=== PATIENT | male | born 1990 | race Caucasian/White ===

== ENCOUNTER 2023-12-05 11:32 | Emergency (ER) | payer MEDICAID, OTHER ==
[~2023-12-05] VITALS: Ht 172.7 cm; Wt 95.0 kg
[~2023-12-05 11:32] MED LIST: CRAN250C PO; DOCU50LI25 PO; FAMO20TA8 PO; FERR325T6 PO; GEMF600T90 PO; LEVE750T4 PO; MULT-1021 PO; OMEG100016 PO; QUET100T PO
[2023-12-05 11:38] VITALS: O2SAT 98
[2023-12-05 13:42] VITALS: TEMP 36.11400
[2023-12-05] MEDS: SODIUM CHLORIDE 0.9% 1000ML BAG (SEPSIS BOLUS) IV ONE (13:53)
[2023-12-05] MEDS: LEVOFLOXACIN 500MG PREMIX 100 ML IV ONE (14:00)
[2023-12-05] MEDS: PANTOPRAZOLE SODIUM 40 MG/VIAL IV ONE (14:00)
[2023-12-05 15:45] VITALS: BP 111/76; PULSE 86; RESP 16; O2SAT 99
[2023-12-05 16:03] LABS: BASOPHILS % 1.1 % (0.0-2.0); EOSINOPHILS % 8.3 % (0.0-5.0); HEMATOCRIT. 48.4 % (42.0-52.0); HEMOGLOBIN. 15.8 g/dL (14.0-18.0); LYMPHOCYTES % 28.7 % (20.0-50.0); MEAN CORPUSCULAR HEMOGLOBIN 30.4 pg (28.0-32.0); MEAN CORPUSCULAR HGB CONC 32.6 g/dL (31.0-37.0); MEAN CORPUSCULAR VOLUME 93.3 fL (80.0-94.0); MEAN PLATELET VOLUME 8.1 fl (7.4-10.4); MONOCYTES % 11.3 % (2.0-8.0); NEUTROPHILS % 50.6 % (40.0-76.0); PLATELET 267 x1000/uL (130-400); RED BLOOD CELL COUNT 5.19 mill/uL (4.7-6.1); RED CELL DISTRIBUTION WIDTH 14.3 % (11.6-14.6); WHITE BLOOD COUNT 5.9 x1000/uL (4.5-11.0)
[2023-12-05 16:08] LABS: CARBON DIOXIDE 25 mEq/L (21-32); CHLORIDE 107 mEq/L (98-107); SODIUM 139 mEq/L (136-145)
[2023-12-05 16:09] LABS: CALCIUM 9.6 mg/dL (8.7-10.4); INR 0.9; PROTHROMBIN TIME 10.1 sec (9.6-11.0)
[2023-12-05 16:13] LABS: CREATININE 0.9 mg/dL (0.6-1.3)
[2023-12-05 16:14] LABS: GLUCOSE 104 mg/dL (70-105); UREA NITROGEN BLOOD 8 mg/dL (9-23)
[2023-12-05 16:15] LABS: ALANINE AMINOTRANSFERASE 80 IU/L (10-49); LACTIC ACID 2.4 mmol/L (0.4-2.0)
[2023-12-05 16:16] LABS: ALBUMIN 4.9 g/dL (3.2-4.8); ASPARTATE AMINOTRANSFERASE 53 IU/L (<34); BILIRUBIN DIRECT 0.1 mg/dL (<=3.0); BILIRUBIN TOTAL 0.4 mg/dL (0.1-1.0); PROTEIN TOTAL 7.9 g/dL (6.0-8.3)
== END 2023-12-05 17:02 | disposition short-term general hospital (02) ==
LOC: ER 11:53 → EDBEDREQ 15:02 → EDBEDREQTM 15:02 → ER 17:02
DX: K92.2 Gastrointestinal hemorrhage, unspecified (principal); K21.9 Gastro-esophageal reflux disease without esophagitis; F20.9 Schizophrenia, unspecified; Z98.890 Other specified postprocedural states; Z88.8 Allergy status to other drugs, medicaments and biological substances; Z79.899 Other long term (current) drug therapy
CPT/HCPCS: 80076; 80048; 83605; 83690; 85025; 85610; 86850; 86900; 86901; 87040; 36415; 84145; 71045; 96365; 96375; 99291; J1956; J2470; J7030; Z7610

== ENCOUNTER 2024-02-25 13:50 | Inpatient (IN) | payer OTHER ==
[~2024-02-25] VITALS: Ht 180.3 cm; Wt 122.9 kg
[2024-02-25] VITALS (19 sets, daily range): BP systolic 103–129; BP diastolic 57–100; PULSE 99–145; RESP 18–24; TEMP 36.9184–37.11408; O2SAT 93–100
[2024-02-25] MEDS: FOLIC ACID 1 MG, THIAMINE HCL 100 MG, MVI, ADULT NO.1 10 ML in DEXTROSE 5% WATER 1,000 ML IV ONE (14:30)
[2024-02-25] MEDS ORDERED: MIDAZOLAM 100MG/100ML PMX 100 ML IV STA (14:40)
[2024-02-25] MEDS: LORAZEPAM 2MG/ML INJ IV ONE ×3 (15:08→20:33)
[2024-02-25] MEDS: LEVETIRACETAM 500MG PREMIX 100 ML IV ONE (15:16)
[2024-02-25] MEDS: LORAZEPAM 2MG/ML INJ IM ONE (15:20)
[2024-02-25 15:49] LABS: BASOPHILS % 0.7 % (0.0-2.0); EOSINOPHILS % 0.1 % (0.0-5.0); HEMATOCRIT. 44.7 % (42.0-52.0); LYMPHOCYTES % 14.5 % (20.0-50.0); MEAN CORPUSCULAR HEMOGLOBIN 30.3 pg (28.0-32.0); MEAN CORPUSCULAR HGB CONC 33.6 g/dL (31.0-37.0); MEAN CORPUSCULAR VOLUME 90.1 fL (80.0-94.0); MEAN PLATELET VOLUME 7.2 fl (7.4-10.4); MONOCYTES % 8.2 % (2.0-8.0); NEUTROPHILS % 76.5 % (40.0-76.0); PLATELET 405 x1000/uL (130-400); RED BLOOD CELL COUNT 4.96 mill/uL (4.7-6.1); RED CELL DISTRIBUTION WIDTH 13.7 % (11.6-14.6); WHITE BLOOD COUNT 12.3 x1000/uL (4.5-11.0)
[2024-02-25 15:58] LABS: CARBON DIOXIDE 19 mEq/L (21-32); CHLORIDE 96 mEq/L (98-107); PARTIAL THROMBOPLASTIN TIME 23.1 sec (23.4-31.0); PROTHROMBIN TIME 11.4 sec (9.6-11.0); SODIUM 136 mEq/L (136-145)
[2024-02-25 15:59] LABS: CALCIUM 8.6 mg/dL (8.7-10.4)
[2024-02-25 16:04] LABS: ETHANOL BLOOD < 10 mg/dL (<10); TROPONIN I HIGH SENSITIVITY 9 ng/L (3.0-53); UREA NITROGEN BLOOD 12 mg/dL (9-23)
[2024-02-25 16:05] LABS: ALANINE AMINOTRANSFERASE 77 IU/L (10-49); ASPARTATE AMINOTRANSFERASE 116 IU/L (<34); PROTEIN TOTAL 7.4 g/dL (6.0-8.3)
[2024-02-25 16:06] LABS: BILIRUBIN DIRECT 0.2 mg/dL (<=3.0); BILIRUBIN TOTAL 0.7 mg/dL (0.1-1.0)
[2024-02-25] MEDS: MIDAZOLAM 100MG/100ML PMX 100 ML IV PRN (16:17)
[2024-02-25 16:26] LABS: CREATININE 1.6 mg/dL (0.6-1.3); GLUCOSE 255 mg/dL (70-105)
[2024-02-25] MEDS ORDERED: KCL 20MEQ/100ML PREMIX 100 ML IV ONE (17:00)
[2024-02-25] MEDS: SODIUM CHLORIDE 0.9% (SEPSIS BOLUS) IV ONE (17:16)
[2024-02-25 17:20] LABS: BG BASE EXCESS -4.4 mmol/L (-2.0-3.0); BG CARBOXYHEMOGLOBIN 0.3 % (0.5-1.5); BG DEOXYHEMOGLOBIN 0.6 % (0.0-5.0); BG FRACTION INSPIRED OXYGEN 100; BG HCO3 ACT 23.2 mmol/L (21.0-28.0); BG METHEMOGLOBIN 0.1 % (0.5-1.5); BG OXYGEN SATURATION 99.4 % (94.0-98.0); BG PCO2 52.4 mmHg (35.0-48.0); BG PH 7.264 (7.350-7.450); BG PO2 223.9 mmHg (83.0-108.0); BG SAMPLE SITE RIGHT RADIAL; BG TOTAL HEMOGLOBIN 15.7 g/dL (13.5-17.5); BG VENT MODE VENT - AC
[2024-02-25] MEDS: VANCOMYCIN 1G PREMIX 200 ML IV ONE (17:43)
[2024-02-25] MEDS: LEVOFLOXACIN 750MG PREMIX 150 ML IV ONE (17:43)
[2024-02-25 17:54] LABS: TROPONIN I HIGH SENSITIVITY 54 ng/L (3.0-53)
[2024-02-25 17:55] LABS: LACTIC ACID 3.7 mmol/L (0.4-2.0)
[2024-02-25] MEDS: VANCOMYCIN 750MG PREMIX 150 ML IV NR (18:53)
[2024-02-25] MEDS: KCL 10MEQ/50ML PREMIX 50 ML IV NR (18:54)
[2024-02-25] MEDS ORDERED: FENTANYL 2500MCG/250ML PMX 250 ML IV ONE (20:15)
[2024-02-25 20:29] LABS: CHLORIDE 102 mEq/L (98-107); POTASSIUM 4.6 mEq/L (3.5-5.1); SODIUM 133 mEq/L (136-145)
[2024-02-25 20:30] LABS: CARBON DIOXIDE 22 mEq/L (21-32)
[2024-02-25 20:31] LABS: CALCIUM 7.5 mg/dL (8.7-10.4)
[2024-02-25 20:35] LABS: CREATININE 1.1 mg/dL (0.6-1.3); GLUCOSE 129 mg/dL (70-105)
[2024-02-25 20:36] LABS: UREA NITROGEN BLOOD 8 mg/dL (9-23)
[2024-02-25] MEDS ORDERED: PIPERACILLIN/TAZO 3.375G/50ML 50 ML IV SCH (22:00)
[2024-02-25] MEDS: LEVETIRACETAM 500MG PREMIX 100 ML IV SCH (22:08)
[2024-02-25 22:20] LABS: BG BASE EXCESS -0.5 mmol/L (-2.0-3.0); BG CARBOXYHEMOGLOBIN 0.5 % (0.5-1.5); BG DEOXYHEMOGLOBIN 0.4 % (0.0-5.0); BG FRACTION INSPIRED OXYGEN 100; BG HCO3 ACT 23.9 mmol/L (21.0-28.0); BG METHEMOGLOBIN 0.2 % (0.5-1.5); BG OXYGEN SATURATION 99.6 % (94.0-98.0); BG OXYHEMOGLOBIN 98.9 % (94.0-98.0); BG PCO2 38.6 mmHg (35.0-48.0); BG PO2 319.4 mmHg (83.0-108.0); BG SAMPLE SITE LEFT RADIAL; BG TOTAL HEMOGLOBIN 13.4 g/dL (13.5-17.5); BG VENT MODE VENT - AC
[2024-02-26] VITALS (79 sets, daily range): BP systolic 86–145; BP diastolic 51–96; PULSE 74–127; RESP 15–26; TEMP 36.3918–37.28076; O2SAT 93–100
[2024-02-26] MEDS ORDERED: FENTANYL 2500MCG/250ML PMX 250 ML IV PRN ×2 (04:00→04:15)
[2024-02-26] MEDS: MIDAZOLAM 100MG/100ML PMX 100 ML IV PRN (04:32)
[2024-02-26] MEDS: FENTANYL CITRATE 2,500 MCG in SODIUM CHLORIDE 0.9% 200 ML IV PRN (04:33)
[2024-02-26 05:26] LABS: HEMATOCRIT 39.8 % (42.0-52.0); HEMOGLOBIN 13.8 g/dL (14.0-18.0); MEAN CORPUSCULAR HEMOGLOBIN 30.8 pg (28.0-32.0); MEAN CORPUSCULAR HGB CONC 34.7 g/dL (31.0-37.0); MEAN CORPUSCULAR VOLUME 88.8 fL (80.0-94.0); PLATELET 275 x1000/uL (130-400); RED BLOOD CELL COUNT 4.48 mill/uL (4.7-6.1); RED CELL DISTRIBUTION WIDTH 13.5 % (11.6-14.6); WHITE BLOOD COUNT 7.7 x1000/uL (4.5-11.0)
[2024-02-26 05:39] LABS: CARBON DIOXIDE 27 mEq/L (21-32); CHLORIDE 105 mEq/L (98-107); POTASSIUM 3.3 mEq/L (3.5-5.1); SODIUM 138 mEq/L (136-145)
[2024-02-26 05:44] LABS: CREATININE 0.9 mg/dL (0.6-1.3)
[2024-02-26 05:45] LABS: GLUCOSE 120 mg/dL (70-105)
[2024-02-26 06:03] LABS: UREA NITROGEN BLOOD < 5 mg/dL (9-23)
[2024-02-26] MEDS: VANCOMYCIN 750MG/150ML (BAXTER) IV SCH (06:40)
[2024-02-26] MEDS: PROPOFOL 10MG/ML 100ML 100 ML IV PRN (08:09)
[2024-02-26] MEDS: VANCOMYCIN 500MG PREMIX 100 ML IV SCH (08:41)
[2024-02-26] MEDS: METRONIDAZOLE 500 MG PREMIX 100 ML IV SCH (09:32)
[2024-02-26] MEDS ORDERED: LEVOFLOXACIN 500MG PREMIX 100 ML IV SCH (10:00)
[2024-02-26] MEDS: KCL 20MEQ/100ML PREMIX 100 ML IV SCH (11:38)
[2024-02-26] MEDS: DEXMEDETOMIDINE 400 MCG/100 ML 100 ML IV PRN (14:14)
[2024-02-26] MEDS: FOLIC ACID 1 MG, THIAMINE HCL 100 MG, MVI, ADULT NO.1 10 ML in DEXTROSE 5% WATER 1,000 ML IV SCH (14:39)
[2024-02-26] MEDS: LEVOFLOXACIN 750MG PREMIX 150 ML IV SCH (16:31)
[2024-02-26 17:21] LABS: BG BASE EXCESS 1.9 mmol/L (-2.0-3.0); BG CARBOXYHEMOGLOBIN 0.7 % (0.5-1.5); BG DEOXYHEMOGLOBIN 5.7 % (0.0-5.0); BG FRACTION INSPIRED OXYGEN 40; BG HCO3 ACT 26.3 mmol/L (21.0-28.0); BG METHEMOGLOBIN 0.3 % (0.5-1.5); BG OXYGEN SATURATION 94.2 % (94.0-98.0); BG OXYHEMOGLOBIN 93.3 % (94.0-98.0); BG PCO2 40.7 mmHg (35.0-48.0); BG PH 7.429 (7.350-7.450); BG PO2 67.3 mmHg (83.0-108.0); BG SAMPLE SITE LEFT RADIAL; BG TOTAL HEMOGLOBIN 13.4 g/dL (13.5-17.5); BG VENT MODE VENT - CPAP
[2024-02-26] MEDS ORDERED: DIPHENHYDRAMINE 50MG/ML VIAL IV PRN (19:45)
[2024-02-26] MEDS: VANCOMYCIN 1.25GM PMX (XELLIA) 250 ML IV SCH (20:15)
[2024-02-27] VITALS (26 sets, daily range): BP systolic 91–137; BP diastolic 52–121; PULSE 83–120; RESP 19–41; TEMP 36.33624–38.3364; O2SAT 89–100
[2024-02-27 01:22] LABS: CLARITY URINE CLEAR (CLEAR); COLOR URINE YELLOW (YELLOW); GLUCOSE URINE NEGATIVE (NEGATIVE); KETONES URINE NEGATIVE (NEGATIVE); LEUKOCYTE ESTERASE URINE NEGATIVE (NEGATIVE); NITRITE URINE NEGATIVE (NEGATIVE); OCCULT BLOOD URINE NEGATIVE (NEGATIVE); PH URINE 6.5 (4.5-8.0); PROTEIN URINE NEGATIVE (NEGATIVE); SPECIFIC GRAVITY URINE 1.009 (1.005-1.030); UROBILINOGEN URINE 0.2 E.U./dL (0.2-1.0)
[2024-02-27 01:32] LABS: *AMPHETAMINES SCREEN URINE NEGATIVE (NEGATIVE); *BARBITURATES SCREEN URINE NEGATIVE (NEGATIVE); *BENZODIAZEPINES SCREEN URINE PRESUMPTIVE POSITIVE (NEGATIVE); *COCAINE SCREEN URINE NEGATIVE (NEGATIVE); ECSTASY MDMA SCREEN URINE NEGATIVE (NEGATIVE); METHADONE URINE SCREEN NEGATIVE (NEGATIVE); OPIATES URINE SCREEN PRESUMPTIVE POSITIVE (NEGATIVE); PHENCYCLIDINE URINE SCREEN NEGATIVE (NEGATIVE)
[2024-02-27 03:52] LABS: CANNABINOID URINE SCREEN NEGATIVE (NEGATIVE)
[2024-02-27 06:15] LABS: BASOPHILS % 0.9 % (0.0-2.0); EOSINOPHILS % 2.4 % (0.0-5.0); HEMATOCRIT. 36.2 % (42.0-52.0); HEMOGLOBIN. 12.6 g/dL (14.0-18.0); LYMPHOCYTES % 22.1 % (20.0-50.0); MEAN CORPUSCULAR HEMOGLOBIN 31.2 pg (28.0-32.0); MEAN CORPUSCULAR HGB CONC 34.7 g/dL (31.0-37.0); MEAN CORPUSCULAR VOLUME 89.9 fL (80.0-94.0); MEAN PLATELET VOLUME 7.4 fl (7.4-10.4); MONOCYTES % 9.3 % (2.0-8.0); NEUTROPHILS % 65.3 % (40.0-76.0); PLATELET 229 x1000/uL (130-400); RED BLOOD CELL COUNT 4.02 mill/uL (4.7-6.1); RED CELL DISTRIBUTION WIDTH 13.4 % (11.6-14.6); WHITE BLOOD COUNT 6.2 x1000/uL (4.5-11.0)
[2024-02-27 06:20] LABS: CHLORIDE 105 mEq/L (98-107); POTASSIUM 3.3 mEq/L (3.5-5.1); SODIUM 140 mEq/L (136-145)
[2024-02-27 06:21] LABS: CARBON DIOXIDE 28 mEq/L (21-32)
[2024-02-27 06:22] LABS: CALCIUM 8.1 mg/dL (8.7-10.4)
[2024-02-27 06:26] LABS: CREATININE 0.9 mg/dL (0.6-1.3); GLUCOSE 105 mg/dL (70-105)
[2024-02-27 06:38] LABS: UREA NITROGEN BLOOD < 5 mg/dL (9-23)
[2024-02-27 09:30] LABS: BG BASE EXCESS 1.2 mmol/L (-2.0-3.0); BG FRACTION INSPIRED OXYGEN 40; BG HCO3 ACT 25.3 mmol/L (21.0-28.0); BG METHEMOGLOBIN 0.1 % (0.5-1.5); BG OXYHEMOGLOBIN 95.9 % (94.0-98.0); BG PCO2 38.7 mmHg (35.0-48.0); BG PH 7.434 (7.350-7.450); BG PO2 81.3 mmHg (83.0-108.0); BG SAMPLE SITE LEFT RADIAL; BG VENT MODE NASAL CANNULA
[2024-02-27] MEDS: PANTOPRAZOLE SODIUM 40 MG/VIAL IV SCH (09:30)
[2024-02-27] MEDS: CHLORDIAZEPOXIDE 25MG CAPSULE PO SCH (09:30)
[2024-02-27] MEDS: POTASSIUM CHLORIDE 20MEQ TABLET SR PO NR (10:04)
[2024-02-27] MEDS: VANCOMYCIN 1.25GM PMX (XELLIA) 250 ML IV SCH (17:43)
[2024-02-28] VITALS (12 sets, daily range): BP systolic 90–142; BP diastolic 56–104; PULSE 99–122; RESP 16–40; TEMP 36.28068–38.0586; O2SAT 87–97
[2024-02-28] MEDS: ACETAMINOPHEN 325MG TABLET PO PRN (00:59)
[2024-02-28] MEDS: HYDROCODONE/ACETAMINOPHEN 10/325MG TABLET PO PRN (06:56)
[2024-02-29] VITALS (12 sets, daily range): BP systolic 114–141; BP diastolic 61–101; PULSE 85–115; RESP 15–32; TEMP 36.3918–37.00296; O2SAT 85–99
[2024-02-29 07:02] LABS: CARBON DIOXIDE 26 mEq/L (21-32); CHLORIDE 107 mEq/L (98-107); SODIUM 141 mEq/L (136-145)
[2024-02-29 07:03] LABS: CALCIUM 8.7 mg/dL (8.7-10.4)
[2024-02-29 07:06] LABS: CREATININE 0.8 mg/dL (0.6-1.3)
[2024-02-29 07:08] LABS: GLUCOSE 111 mg/dL (70-105); UREA NITROGEN BLOOD 7 mg/dL (9-23)
[2024-02-29 07:10] LABS: PHOSPHORUS 3.2 mg/dL (2.5-4.9)
[2024-02-29 07:12] LABS: BASOPHILS % 0.8 % (0.0-2.0); EOSINOPHILS % 7.2 % (0.0-5.0); HEMATOCRIT. 39.1 % (42.0-52.0); HEMOGLOBIN. 13.4 g/dL (14.0-18.0); LYMPHOCYTES % 31.3 % (20.0-50.0); MEAN CORPUSCULAR HEMOGLOBIN 31.3 pg (28.0-32.0); MEAN CORPUSCULAR HGB CONC 34.2 g/dL (31.0-37.0); MEAN CORPUSCULAR VOLUME 91.4 fL (80.0-94.0); MEAN PLATELET VOLUME 7.4 fl (7.4-10.4); MONOCYTES % 12.5 % (2.0-8.0); NEUTROPHILS % 48.2 % (40.0-76.0); PLATELET 253 x1000/uL (130-400); RED BLOOD CELL COUNT 4.27 mill/uL (4.7-6.1); RED CELL DISTRIBUTION WIDTH 13.7 % (11.6-14.6); WHITE BLOOD COUNT 5.6 x1000/uL (4.5-11.0)
[2024-02-29] MEDS: FAMOTIDINE 20MG/2ML VIAL IV SCH (08:12)
[2024-02-29] MEDS: LACTOBACILLUS GG CAPSULE PO SCH (17:18)
[2024-03-01] VITALS: BP 116/75; PULSE 105; RESP 22; TEMP 37.00296; O2SAT 97
[2024-03-01] MEDS: ZOLPIDEM TARTRATE 5MG TABLET PO NR (00:35)
[2024-03-01 04:00] VITALS: BP 117/74; PULSE 99; RESP 18; TEMP 36.16956; O2SAT 91
[2024-03-01 08:00] VITALS: BP 85/64; PULSE 99; RESP 16; TEMP 37.503; O2SAT 95
[2024-03-01] MEDS: LEVETIRACETAM 500MG TABLET PO SCH (10:03)
[2024-03-01 12:00] VITALS: BP 131/68; PULSE 103; RESP 21; TEMP 36.44736; O2SAT 95
[2024-03-01 16:00] VITALS: BP 113/67; PULSE 100; RESP 17; TEMP 36.55848; O2SAT 84
[2024-03-01 20:00] VITALS: BP 124/79; PULSE 97; RESP 26; TEMP 37.11408; O2SAT 95
[2024-03-01] MEDS: ZOLPIDEM TARTRATE 5MG TABLET PO PRN (21:41)
[2024-03-02] VITALS: BP 114/72; PULSE 95; RESP 22; TEMP 36.44736; O2SAT 96
[2024-03-02 04:00] VITALS: BP 120/86; PULSE 95; RESP 28; TEMP 36.28068; O2SAT 94
[2024-03-02 08:00] VITALS: BP 130/87; PULSE 107; RESP 32; TEMP 36.78072; O2SAT 97
[2024-03-02 12:00] VITALS: BP 125/77; PULSE 108; RESP 33; TEMP 36.78072
[2024-03-02 16:00] VITALS: BP 133/91; PULSE 100; RESP 15; TEMP 36.9474
[2024-03-02] MEDS ORDERED: NALOXONE HCL 0.4MG/ML VIAL IV PRN (16:00)
[2024-03-02 20:00] VITALS: BP 116/90; PULSE 99; RESP 19; TEMP 36.3918; O2SAT 98
[2024-03-03] VITALS: BP 122/97; PULSE 97; RESP 17; TEMP 36.22512; O2SAT 98
[2024-03-03 04:00] VITALS: BP 103/68; PULSE 94; RESP 18; TEMP 36.44736; O2SAT 98
[2024-03-03 08:00] VITALS: PULSE 108; RESP 23; TEMP 37.2252
[2024-03-03 12:00] VITALS: BP 121/62; PULSE 98; TEMP 36.6696
[2024-03-03 16:00] VITALS: BP 119/78; PULSE 103; TEMP 36.9474
[2024-03-03 20:00] VITALS: PULSE 95; RESP 18; TEMP 37.28076
[2024-03-04] VITALS: BP 119/69; PULSE 98; RESP 18; TEMP 36.6696
[2024-03-04 04:00] VITALS: BP 120/62; PULSE 98; RESP 18; TEMP 36.78072
[2024-03-04] MEDS: HYDROCODONE/ACETAMINOPHEN 10/325MG TABLET PO PRN (06:54)
[2024-03-04 08:55] VITALS: BP 122/90; PULSE 98; RESP 18; TEMP 36.61404
[2024-03-04] MEDS: METRONIDAZOLE 500MG TABLET PO SCH (13:56)
[2024-03-04 16:00] VITALS: BP 124/69; PULSE 86; RESP 20; TEMP 36.50292
[2024-03-04 20:00] VITALS: BP 126/81; PULSE 97; RESP 18; TEMP 35.78064; O2SAT 97
[2024-03-04 20:56] VITALS: BP 126/81; PULSE 97; RESP 18; TEMP 35.78064; O2SAT 97
[2024-03-05] VITALS: BP 110/54; PULSE 103; RESP 20; TEMP 35.8362; O2SAT 98
[2024-03-05 04:00] VITALS: BP 121/82; PULSE 105; RESP 18; TEMP 36.28068; O2SAT 94
[2024-03-05 08:00] VITALS: BP 96/45; PULSE 90; RESP 19; TEMP 36.05844; O2SAT 100
[2024-03-05 12:00] VITALS: BP 110/65; PULSE 93; RESP 20; TEMP 36.00288; O2SAT 100
[2024-03-05 16:00] VITALS: BP 107/71; PULSE 91; RESP 20; TEMP 36.00288; O2SAT 100
[2024-03-05 20:00] VITALS: BP 108/70; PULSE 94; RESP 20; TEMP 36.28068; O2SAT 94
[2024-03-06] VITALS: BP 117/69; PULSE 96; RESP 19; TEMP 36.89184; O2SAT 95
[2024-03-06 04:00] VITALS: BP 114/80; PULSE 96; RESP 19; TEMP 36.83628; O2SAT 96
[2024-03-06 08:00] VITALS: BP 110/65; PULSE 94; RESP 20; TEMP 36.6696; O2SAT 100
[2024-03-06 12:00] VITALS: BP 123/72; PULSE 93; RESP 20; TEMP 36.05844; O2SAT 98
[2024-03-06 16:00] VITALS: BP 129/96; PULSE 97; RESP 20; TEMP 36.16956; O2SAT 99
[2024-03-06 20:00] VITALS: BP 113/73; PULSE 91; RESP 18; TEMP 36.22512; O2SAT 99
[2024-03-07] VITALS: BP_SYST 109; BP_SYST 135; BP_DIAS 74; BP_DIAS 89; PULSE 100; PULSE 98; RESP 18; RESP 20; TEMP 36.05844; TEMP 36.55848; O2SAT 100; O2SAT 96
[2024-03-07 04:00] VITALS: BP 118/79; PULSE 96; RESP 20; TEMP 36.3918; O2SAT 96
[2024-03-07 08:00] VITALS: BP 113/78; PULSE 92; RESP 20; TEMP 36.114; O2SAT 100
[2024-03-07] MEDS: LEVOFLOXACIN 250MG TABLET PO SCH (11:17)
[2024-03-07 12:00] VITALS: BP 98/68; PULSE 80; RESP 20; TEMP 36.6696; O2SAT 100
[2024-03-07] MEDS ORDERED: KEPP500 PO (12:22)
[2024-03-07 16:00] VITALS: BP 133/90; PULSE 104; RESP 20; TEMP 36.114; O2SAT 100
[2024-03-07 20:00] VITALS: BP 117/53; PULSE 95; RESP 20; TEMP 36.50292; O2SAT 99
[2024-03-07] MEDS: ZOLPIDEM TARTRATE 5MG TABLET PO PRN (22:18)
[2024-03-08 04:00] VITALS: BP 93/51; PULSE 87; RESP 20; TEMP 36.28068; O2SAT 96
[2024-03-08 16:00] VITALS: BP 107/56; PULSE 86; RESP 19; TEMP 36.28068; O2SAT 98
[2024-03-08 20:00] VITALS: BP 119/64; PULSE 77; RESP 18; TEMP 36.50292; O2SAT 96
[2024-03-09] VITALS: BP 122/60; PULSE 75; RESP 18; TEMP 36.50292; O2SAT 97
[2024-03-09 04:00] VITALS: BP 104/65; PULSE 86; RESP 18; TEMP 36.50292; O2SAT 97
[2024-03-09 08:00] VITALS: BP 108/68; PULSE 79; RESP 20; TEMP 36.55848; O2SAT 100
[2024-03-09] MEDS: HYDROCODONE/ACETAMINOPHEN 10/325MG TABLET PO PRN (11:33)
[2024-03-09 12:00] VITALS: BP 116/70; PULSE 84; RESP 20; TEMP 36.3918; O2SAT 100
[2024-03-09 16:00] VITALS: BP 116/88; PULSE 89; RESP 20; TEMP 36.6696; O2SAT 100
[2024-03-09 20:00] VITALS: BP 121/77; PULSE 103; RESP 18; TEMP 36.22512
[2024-03-10] VITALS: BP 113/77; PULSE 85; RESP 17; TEMP 36.33624; O2SAT 98
[2024-03-10] MEDS: ONDANSETRON HCL 4MG/2ML INJ IV PRN (03:08)
[2024-03-10 08:00] VITALS: BP 130/76; PULSE 79; RESP 20; TEMP 36.00288; O2SAT 98
[2024-03-10 12:00] VITALS: BP 97/57; PULSE 93; RESP 18; TEMP 36.114; O2SAT 97
[2024-03-10 16:00] VITALS: BP 117/70; PULSE 93; RESP 18; TEMP 36.16956; O2SAT 97
[2024-03-10 20:00] VITALS: BP 132/68; PULSE 77; RESP 18; TEMP 36.50292; O2SAT 97
[2024-03-11] VITALS: BP 96/54; PULSE 95; RESP 18; TEMP 36.3918; O2SAT 96
[2024-03-11 08:00] VITALS: BP 118/81; PULSE 88; RESP 20; TEMP 36.44736; O2SAT 100
[2024-03-11 12:00] VITALS: BP 81/46; PULSE 87; RESP 18; TEMP 36.33624; O2SAT 97
[2024-03-11 16:00] VITALS: BP 114/74; PULSE 94; RESP 20; TEMP 36.55848; O2SAT 100
== END 2024-03-11 16:16 | disposition home or self-care (01) | DRG 720 ==
LOC: ER 13:59 → EDBEDREQ 14:33 → EDBEDREQTM 17:16 → EDBEDREQ 17:16 → MICUSO 20:57 → 5EST 02-27 14:22 → 6WST 03-03 21:15
PROVIDERS: ADMIT Internal Medicine; ATTEND Internal Medicine
PROC: 0BH17EZ Insertion of Endotracheal Airway into Trachea, Via Natural or Artificial Opening (ICD-10-PCS; 2024-02-25)
PROC: 5A09357 Assistance with Respiratory Ventilation, Less than 24 Consecutive Hours, Continuous Positive Airway Pressure (ICD-10-PCS; 2024-02-25)
PROC: 4A00X4Z Measurement of Central Nervous Electrical Activity, External Approach (ICD-10-PCS; principal; 2024-03-01)
PROC: 0PSPXZZ Reposition Right Metacarpal, External Approach (ICD-10-PCS; 2024-03-05)
DX: A41.9 Sepsis, unspecified organism (principal); J96.01 Acute respiratory failure with hypoxia; J69.0 Pneumonitis due to inhalation of food and vomit; G93.40 Encephalopathy, unspecified; N17.9 Acute kidney failure, unspecified; E87.20 Acidosis, unspecified; G40.901 Epilepsy, unspecified, not intractable, with status epilepticus; F20.9 Schizophrenia, unspecified; K21.9 Gastro-esophageal reflux disease without esophagitis; R79.89 Other specified abnormal findings of blood chemistry; G93.89 Other specified disorders of brain; F10.139 Alcohol abuse with withdrawal, unspecified; J96.02 Acute respiratory failure with hypercapnia; E66.9 Obesity, unspecified; K52.9 Noninfective gastroenteritis and colitis, unspecified; Y90.9 Presence of alcohol in blood, level not specified; W05.0XXA Fall from non-moving wheelchair, initial encounter; Y92.238 Other place in hospital as the place of occurrence of the external cause; S62.394A Other fracture of fourth metacarpal bone, right hand, initial encounter for closed fracture; Z98.2 Presence of cerebrospinal fluid drainage device; Z91.199 Patient's noncompliance with other medical treatment and regimen due to unspecified reason; Z79.899 Other long term (current) drug therapy; Z78.1 Physical restraint status; Z88.1 Allergy status to other antibiotic agents; Y93.89 Activity, other specified; Y92.89 Other specified places as the place of occurrence of the external cause; Y99.8 Other external cause status; Z68.37 Body mass index [BMI] 37.0-37.9, adult
CPT/HCPCS: 31500; 36415; 36600; 70486; 71045; 73100; 73130; 73560; 74176; 80048; 80076; 80202; 80305; 80320; 81003; 82375; 82805; 83605; 83735; 84100; 84145; 84484; 85025; 85027; 86850; 86900; 87015; 87045; 87077; 87186; 87427; 87449; 93005; 94002; 94003; 95816; 97116; 97162; 97166; 97530; 97535; 99291; A6261; C1893; J1953; J1956; J2060; J2250; J2405; J2470; J2704; J3010; J3370; J3411; J3480; J3490; J7030; J7070; Q9957; G0480